=== PATIENT | female | born 1990 | race American Indian/Alaskan Native ===

== ENCOUNTER 2022-02-26 20:17 | Emergency (ER) | payer SELFPAY ==
[2022-02-26 20:56] VITALS: BP 127/66
== END 2022-02-26 22:00 | disposition left against medical advice (07) ==
LOC: ED 20:17
DX: K62.89 Other specified diseases of anus and rectum (principal); R10.9 Unspecified abdominal pain; Z53.21 Procedure and treatment not carried out due to patient leaving prior to being seen by health care provider